=== PATIENT | male | born 1990 | race Caucasian/White ===

== ENCOUNTER 2021-07-17 00:05 | Emergency (ER) | payer OTHER, SELFPAY ==
[2021-07-17] MEDS ORDERED: MORPHINE 4 MG/ML SYR ONE (00:39)
[2021-07-17] MEDS ORDERED: ONDANSETRON 4 MG/2 ML VIAL ONE (00:39)
[2021-07-17] MEDS ORDERED: NA CHLORIDE 0.9% 1,000 ML ONE (01:01)
[2021-07-17 01:07] LABS: Absolute Lymphocytes (CBC) 2.4 K/uL (0.7-4.9); Hematocrit 47.9 % (39.6-49.0); Lymphocytes % 19.4 % (15.3-44.8); MPV 7.8 fL (7.6-11.3); RBC Red Blood Cell Count 4.66 M/uL (4.33-5.43)
[2021-07-17 01:10] LABS: Protime INR 1.17
[2021-07-17 01:18] LABS: Albumin 3.9 g/dL (3.4-5.0); Bilirubin Direct 0.3 mg/dL (0-0.2); Bilirubin Total 0.6 mg/dL (0.2-1.0); Potassium 3.3 mmol/L (3.5-5.1); Protein, Total 8.6 g/dL (6.4-8.2)
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
[2021-07-17 04:34] VITALS: TEMP 99
[2021-07-17 04:36] VITALS: O2SAT 96
[2021-07-17 04:38] VITALS: BP 96/66
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
== END 2021-07-17 04:14 | disposition home or self-care (01) ==
LOC: ER 00:05
DX: S20.219A Contusion of unspecified front wall of thorax, initial encounter (principal); S30.1XXA Contusion of abdominal wall, initial encounter; S30.0XXA Contusion of lower back and pelvis, initial encounter; F10.929 Alcohol use, unspecified with intoxication, unspecified; V49.40XA Driver injured in collision with unspecified motor vehicles in traffic accident, initial encounter
CPT/HCPCS: 96361; 85025; 80048; 36415; 80320; 86900; 86850; 85610; 82565; 86901; 80076; 85730; 70450; 72125; 71260; 74177; 73562; 96375; 96374; 99284; Q9967; J7030; J2405